=== PATIENT | female | born 1965 | race African-American/Black ===

== ENCOUNTER 2019-10-14 07:05 | Emergency (ER) | payer OTHER ==
[2019-10-14 07:32] VITALS: TEMP 98.9; BMI 27.8
[2019-10-14] MEDS ORDERED: SODIUM CHLORIDE 0.9% 500 ML INFUS.BAG IV ONE ×2 (07:47→10:36)
--- NOTE | 2019-10-14 07:49 | PDOC ---
History of Present Illness - General Chief Complaint: Blood Sugar Problem Stated Complaint: HIGH BP Time Seen by Provider: 10/14/19 07:33 History Source: Patient Exam Limitations: No Limitations - History of Present Illness Initial Comments: 10/14/19 07:49 53M PMH DM, HTN, HLD, Left breast ca s/p mastectomy presenting with high BGM (>500) today and 1 week of dizziness with decreased PO tolerance. States she takes all her medications every day. BGM ~ 300 regularly. Denies f/c, BURNETTE / vision changes, cp/sob/palp, n/v/d, dysuria, frequency, cough, runny nose, sick contacts. NKDA. Past History - Medical History Allergies/Adverse Reactions: Allergies Allergy/AdvReac Type Severity Reaction Status Date / Time No Known Allergies Allergy Verified 10/14/19 08:25 Home Medications: Ambulatory Orders Sitagliptin Phos/Metformin HCl [Janumet 50-1,000 mg Tablet] 1 tab PO DAILY 06/12/13 Atorvastatin Ca [Lipitor] 10 mg PO HS #0 tablet 06/13/13 Amlodipine Besylate 5 mg PO DAILY 10/14/19 Buspirone HCl [Buspar -] 7.5 mg PO BID 10/14/19 Chlorpromazine [Thorazine -] 100 mg PO DAILY 10/14/19 Insulin Glargine,Hum.rec.anlog [Basaglar Kwikpen U-100] 40 unit SQ DAILY 10/14/19 Insulin Lispro [Admelog Solostar] See Protocol SQ QID PRN 10/14/19 Metformin HCl [Glucophage] 1,000 mg PO BID 10/14/19 Metoprolol Succinate 25 mg PO DAILY 10/14/19 Nortriptyline HCl [Pamelor -] 50 mg PO HS 10/14/19 Semaglutide [Ozempic] 1 mg SQ WEEKLY 10/14/19 Sertraline HCl 50 mg PO TID 10/14/19 traZODone HCL [Trazodone HCl] 50 mg PO DAILY 10/14/19 Cancer: Yes (LT BREAST) COPD: No Diabetes: Yes Disorders: Yes (H/O KIDNEY STONES) HTN: Yes - Immunization History Immunization Up to Date: No - Psycho-Social/Smoking History Smoking History: Never smoked Have you smoked in the past 12 months: No Information on smoking cessation initiated: No - Substance Abuse Hx (Audit-C & DAST Scrn) How often the patient has a drink containing alcohol: Never Score: In Men: 4 or > Positive; In Women: 3 or > Positive: 0 Screen Result (Pos requires Nsg. Audit-10AR): Negative In the last yr the pt used illegal drug/Rx for NonMed reason: No Score: Yes response is considered Positive: 0 Screen Result (Positive result requires Nsg. DAST-10): Negative Review of Systems - Review of Systems Comments:: 10/15/19 09:11 CONSTITUTIONAL: Denies F / C HEENT: Endorses dizziness. Denies headache, changes in vision / hearing, sore throat, rhinorrhea RESP: Denies SOB, cough CARD: Denies chest pain, palpitations GI: Denies N / V / D, abdominal pain, bloody stool, inability to tolerate PO : Denies dysuria, hematuria, frequency NEURO: Denies numbness, tingling, weakness MSK: Denies back pain SKIN: Denies rashes *Physical Exam - Vital Signs Last Vital Signs Temp Pulse Resp BP Pulse Ox 98.9 F 110 H 16 116/76 99 10/14/19 07:25 10/14/19 07:25 10/14/19 07:25 10/14/19 07:25 10/14/19 07:25 - Physical Exam 10/15/19 09:12 GEN: NAD. AAOx3. HEENT: NC/AT, CN II-XII grossly intact, EOMI, PERRL. No facial asymmetry. Normal voice. Supple neck w/ FROM. CV: S1/S2, tachycardic, no m/r/g LUNG: CTAB, no wheezes, crackles, rales, rhonchi. GI: Soft, mild distension, nontender, +BS, no guarding, no rebound. No masses. Neg CVAT b/l. MSK: No LE edema. No obvious deformities of all extremities. SKIN: Warm, dry, no rashes appreciated. PSYCH: Normal mood and affect. NEURO: Moving all extremities well. 5/5 UE and LE strength. sensation symmetric. ED Treatment Course - LABORATORY CBC & Chemistry Diagram: 10/14/19 08:10 10/14/19 08:10 - RADIOLOGY Radiology Studies Ordered: Category Date Time Status CHEST X-RAY PORTABLE* [RAD] Stat Radiology 10/14/19 07:46 Ordered Medical Decision Making - Medical Decision Making 10/15/19 09:12 53M DM, HTN, HLD presenting with BGM >500 and dizziness. DDX - hyperglycemia; less likely HHS or DKA; will eval for infectious etiologies - CBC, CMP, beta hydroxybutyrate, VBG - UA - EKG, CXR - Fluids 10/14/19 08:40 EKG 10/14/19 HR 98 NSR, intervals and axis wnl, no JC/D, flat t-waves diffusely 10/14/19 08:45 VBG reviewed - pH wnl, unlikely DKA 10/14/19 10:12 labs reviewed no anion gap, no acidosis, isolated elevation in betahydroxybutyrate downtrending BGM f/u UA 10/14/19 12:14 pt feeling better s/p 2 L NS downtrending BGMs despite pt eating a meal will dc home w/ endo and pcp f/u Discharge - Discharge Information Problems reviewed: Yes Clinical Impression/Diagnosis: Hyperglycemia Condition: Stable Disposition: HOME - Follow up/Referral Referrals: Orlando Cheng MD [Primary Care Provider] - Bolivar Glez MD [Staff Physician] - - Patient Discharge Instructions Patient Printed Discharge Instructions: DI for Hyperglycemia -- Adult Additional Instructions: Drink plenty of fluids. Continue your home medications as prescribed. Follow up with your Primary Care Doctor regarding this ED visit in the next 5-7 days. Discuss options that may help you better control your blood sugar. Follow up with Endocrinology in the next 5-7 days. Discuss options that may help you better control your blood sugar. We are referring you to Dr. Glez, you can call and schedule an appointment with the number attached. You may use any motor driver in your network. Return to the nearest Emergency Department if you experience new or worsening symptoms - Post Discharge Activity
[2019-10-14 08:38] LABS: VENOUS BASE EXCESS -3.3 mmol/L (-2-2); VENOUS PCO2 40.1 mmHg (38-52); VENOUS PH 7.356 (7.310-7.410)
--- NOTE | 2019-10-14 08:41 | PDOC ---
Attending Attestation - Resident Resident Name: Stuart Noble - ED Attending Attestation I have performed the following: I have examined & evaluated the patient, The case was reviewed & discussed with the resident, I agree w/resident's findings & plan, Exceptions are as noted - HPI HPI: 10/14/19 08:36 53 yo F h/o DM p/w elevated FS to 500's measured this morning. States usually in the 300s. Reports taking her medication as prescribed. Denies any changes in diet. Reports some intermittent dizziness. Denies n/v. Denies abd pain, chest pain, or SOB. No infectious complaints. - Physicial Exam PE: 10/14/19 08:37 General: well appearing, NAD Chest: CTAB, good air entry, no wheezes rales or rhonchi CVS: + s1 s2 Abdomen: soft, nt no rebound, no guarding Neuro: awake, alert, responds appropriately to questions, no focal deficits - Medical Decision Making 10/14/19 08:41 53 yo F with elevated FS at home, possible DKA vs. HHS vs. hyperglycemia, no infectious complaints to suggest infectious etiology, patient with elevated FS at baseline to 300 suggesting she might benefit from medication readjustment as outpatient. Plan: -labs -IVF -reassess This clinical encounter is taking place during a federal and state health care emergency attributable to the novel Jacob Virus pandemic. The [place] of the Department of Health and Human Services has declared, pursuant to the Public Health Service Act 319F-3 (42 U.S.C. 247d-6d), that a covered persons activities related to medical countermeasures against COVID-19 will be immune from liability under Federal and State law. 10/14/19 11:50 Labs reviewed. No DKA. FS improved with IVF. Will d/c with return precautions, recommend PMD f/u Discharge - Discharge Information Problems reviewed: Yes Clinical Impression/Diagnosis: Hyperglycemia Condition: Stable - Follow up/Referral Referrals: Bolivar Glez MD [Staff Physician] - Orlando Cheng MD [Primary Care Provider] - - Patient Discharge Instructions Patient Printed Discharge Instructions: DI for Hyperglycemia -- Adult Additional Instructions: Drink plenty of fluids. Continue your home medications as prescribed. Follow up with your Primary Care Doctor regarding this ED visit in the next 5-7 days. Discuss options that may help you better control your blood sugar. Follow up with Endocrinology in the next 5-7 days. Discuss options that may help you better control your blood sugar. We are referring you to Dr. Glez, you can call and schedule an appointment with the number attached. You may use any thread winder in your network. Return to the nearest Emergency Department if you experience new or worsening symptoms - Post Discharge Activity
[2019-10-14 08:44] LABS: BASO % 0.3 % (0-2.0); EOS % 1.1 % (0-4.5); HEMOGLOBIN 10.8 GM/dL (10.7-15.3); MCH 26.1 pg (25.7-33.7); MCHC 32.8 g/dl (32.0-36.0); MEAN CELL VOLUME 79.8 fl (80-96); MEAN PLT VOLUME 8.3 fl (7.5-11.1); MONO % 6.8 % (3.8-10.2); NEUT % 71.8 % (42.8-82.8); PLATELET COUNT 349 K/MM3 (134-434); RBC 4.14 M/mm3 (3.60-5.2); RDW 14.3 % (11.6-15.6); WHITE BLOOD COUNT 9.3 K/mm3 (4.0-10.0)
[2019-10-14 09:14] LABS: ALBUMIN 3.8 g/dl (3.4-5.0); BILIRUBIN,TOTAL 0.2 mg/dL (0.2-1); BLOOD UREA NITROGEN 14.4 mg/dL (7-18); CALCIUM 9.1 mg/dL (8.5-10.1); POTASSIUM 4.5 mmol/L (3.5-5.1); TOT PROT 7.5 g/dl (6.4-8.2)
[2019-10-14 10:25] VITALS: BP 128/77; PULSE 89
[2019-10-14 10:43] LABS: URINE APPEARANCE CLEAR; URINE BILIRUBIN NEGATIVE (NEGATIVE); URINE COLOR YELLOW; URINE GLUCOSE (UA) 3+ (NEGATIVE); URINE KETONE 1+ (NEGATIVE); URINE LEUK ESTERASE NEGATIVE (NEGATIVE); URINE NITRITE NEGATIVE (NEGATIVE); URINE PROTEIN NEGATIVE (NEGATIVE); URINE UROBILINOGEN 0.2 mg/dL (0.2-1.0)
--- NOTE | 2019-10-15 17:30 | EKG ---
Test Reason : Blood Pressure : / mmHG Vent. Rate : 098 BPM Atrial Rate : 098 BPM P-R Int : 154 ms QRS Dur : 072 ms QT Int : 366 ms P-R-T Axes : 063 034 062 degrees QTc Int : 467 ms NORMAL SINUS RHYTHM POSSIBLE LEFT ATRIAL ENLARGEMENT NONSPECIFIC T WAVE ABNORMALITY ABNORMAL ECG WHEN COMPARED WITH ECG OF 01-APR-2010 10:03, NO SIGNIFICANT CHANGE WAS FOUND Confirmed by MD Suleiman, Oni ([id number]) on 10/15/2019 5:30:23 PM Referred By: Confirmed By:Oni Bearden MD
== END 2019-10-14 12:25 | disposition home or self-care (01) ==
LOC: JER 07:05 → SUPCPDRO 07:05 → JER 12:25
DX: R73.9 Hyperglycemia, unspecified (principal)
CPT/HCPCS: 36415; 71045-TC-FY; 80053; 81003; 82010; 82803; 82962; 85025; 87086; 93005; 93010; 99285-25

== ENCOUNTER 2019-12-13 14:12 | Inpatient (IN) | payer OTHER ==
[2019-12-13 14:24] VITALS: TEMP 98; BMI 26.6
--- NOTE | 2019-12-13 14:50 | PDOC ---
History of Present Illness - General Chief Complaint: Blood Sugar Problem Stated Complaint: HYPERGLYCEMIA Time Seen by Provider: 12/13/19 14:43 - History of Present Illness Initial Comments: 12/13/19 15:31 53yo F w/ PMHx DM poorly controlled by her medication, HTN, HLD, CVA, Breast CA, presents w/ elevated blood sugar today. This AM before insulin BG = 500s. This afternoon it was again in the 500s, so she came into the ED. She feels vertiginous and weak. Reports adhering to her medications. Denies n/v/d, recent illness, fevers, rashes. This has happened before. Past History - Travel History Traveled outside of the country in the last 30 days: No - Medical History Allergies/Adverse Reactions: Allergies Allergy/AdvReac Type Severity Reaction Status Date / Time No Known Allergies Allergy Verified 10/14/19 08:25 Home Medications: Ambulatory Orders Amlodipine Besylate 5 mg PO DAILY 10/14/19 Buspirone HCl [Buspar -] 7.5 mg PO BID 10/14/19 Chlorpromazine [Thorazine -] 100 mg PO DAILY 10/14/19 Insulin Glargine,Hum.rec.anlog [Basaglar Kwikpen U-100] 40 unit SQ DAILY 10/13 Metoprolol Succinate 25 mg PO DAILY 10/14/19 Nortriptyline HCl [Pamelor -] 50 mg PO HS 10/14/19 Sertraline HCl 50 mg PO HS PRN 10/14/19 traZODone HCL [Trazodone HCl] 50 mg PO DAILY 10/14/19 Atorvastatin Ca [Lipitor] 20 mg PO HS 12/13/19 Metformin HCl [Glucophage] 500 mg PO BID 12/13/19 Omeprazole 20 mg PO DAILY 12/13/19 Cancer: Yes (LT BREAST) COPD: No Diabetes: Yes Disorders: Yes (H/O KIDNEY STONES) HTN: Yes - Reproductive History Is Patient Now?: No - Immunization History Immunization Up to Date: No - Psycho-Social/Smoking History Smoking History: Never smoked Have you smoked in the past 12 months: No Information on smoking cessation initiated: No - Substance Abuse Hx (Audit-C & DAST Scrn) How often the patient has a drink containing alcohol: Never Score: In Men: 4 or > Positive; In Women: 3 or > Positive: 0 Screen Result (Pos requires Nsg. Audit-10AR): Negative In the last yr the pt used illegal drug/Rx for NonMed reason: No Score: Yes response is considered Positive: 0 Screen Result (Positive result requires Nsg. DAST-10): Negative Review of Systems - Review of Systems Able to Perform ROS?: Yes Is the patient limited Martiniquais proficient: No Constitutional: Yes: Weakness. No: Chills, Diaphoresis HEENTM: No: Blurred Vision Respiratory: No: Cough, SOB with Exertion, SOB at Rest ABD/GI: Yes: Abdominal Distended (reports slow and progressive distention of ABD for months). No: Diarrhea, Nausea, Vomiting : No: Burning, Dysuria, Hematuria, Urgency Musculoskeletal: No: Back Pain, Muscle Pain Integumentary: Yes: Dryness. No: Other Neurological: Yes: Weakness, Dizziness. No: Headache, Numbness Endocrine: Yes: Unexplained Weight Gain, Change in Weight (went to PCP 2 months ago for check up ) All Other Systems: Reviewed and Negative *Physical Exam - Vital Signs Last Vital Signs Temp Pulse Resp BP Pulse Ox 98.0 F 103 H 16 126/78 97 12/13/19 14:20 12/13/19 14:20 12/13/19 14:20 12/13/19 14:20 12/13/19 14:20 - Physical Exam General Appearance: Yes: Nourished, Appropriately Dressed, Apparent Distress, Mild Distress HEENT: positive: EOMI. negative: Normal Voice (voice is weak and slightly sl urred. no trouble protecting airway. normal SpO2, no increased labor of breathing), Excessive drooling Neck: positive: Trachea midline. negative: Stridor Respiratory/Chest: positive: Lungs Clear, Normal Breath Sounds. negative: Chest Tender, Respiratory Distress, Accessory Muscle Use, Labored Respiration, Rapid RR, Decreased Breath Sounds Cardiovascular: positive: Regular Rhythm, S1, S2, Tachycardia Gastrointestinal/Abdominal: positive: Normal Bowel Sounds, Soft, Distended Musculoskeletal: positive: Normal Inspection. negative: CVA Tenderness Extremity: positive: Normal Capillary Refill, Normal Inspection Integumentary: positive: Dry Neurologic: positive: Fully Oriented, Alert, Normal Response (slurring words and lethargic but A/O and in NAD ) Heart Score/ECG Review - ECG Intrepretation Rhythm: Regular Rhythm - [place]: Normal - QRS Comment:: 12/13/19 16:12 low voltage in lead 3 and V3 - ST and T Early Repolarization: No - ECG Impressions Normal ECG: No ED Treatment Course - LABORATORY CBC & Chemistry Diagram: 12/13/19 15:21 12/13/19 15:21 Medical Decision Making - Medical Decision Making 12/13/19 15:42 53yo F w/ extensive history of DM-related complications presents hyperglycemic, lethargic, and weak. lethargic and reporting elevated BH -> obtained BGM -> 457. -> will draw labs, start immediate fluid resus w/ LR while waiting for labs. h/o cardiac issues, CVA, breast CA -> hypercoaguable -> will consider head CT if fluid resus and IV insulin does not work 12/13/19 16:08 12/13/19 16:40 CMP: K normal, Anion gap 13, ++ketones. will give insulin bolus and K PO to cover intracellular shift. 12/13/19 18:03 after pt was accepted she decided to AMA and leave. PT AA/O x4, pt has capacity and understands risks of AMA. will check one more BG and DC 12/13/19 18:19 Discharge - Discharge Information Problems reviewed: Yes Clinical Impression/Diagnosis: Hyperglycemia due to diabetes mellitus, Ketosis due to diabetes Condition: Stable Disposition: AGAINST MEDICAL ADVICE - Admission Yes - Follow up/Referral - Patient Discharge Instructions - Post Discharge Activity
[2019-12-13] MEDS ORDERED: LACTATED RINGERS SOLUTION 1,000 ML/1,000 ML INFUS.BAG IV STA (15:09)
[2019-12-13 15:48] LABS: VENOUS O2 SATURATION 76.6 % (70-80); VENOUS PH 7.341 (7.310-7.410)
[2019-12-13 15:50] LABS: BASO % 0.3 % (0-2.0); EOS % 1.3 % (0-4.5); HEMATOCRIT 35.8 % (32.4-45.2); HEMOGLOBIN 11.7 GM/dL (10.7-15.3); LYMPH % 26.1 % (8-40); MCH 26.2 pg (25.7-33.7); MCHC 32.8 g/dl (32.0-36.0); MEAN PLT VOLUME 9.1 fl (7.5-11.1); MONO % 5.6 % (3.8-10.2); NEUT % 66.7 % (42.8-82.8); PLATELET COUNT 349 K/MM3 (134-434); RBC 4.48 M/mm3 (3.60-5.2); RDW 14.6 % (11.6-15.6); WHITE BLOOD COUNT 9.4 K/mm3 (4.0-10.0)
--- NOTE | 2019-12-13 15:55 | PDOC ---
Documentation entered by William Fulton SCRIBE, acting as scribe for Marco A Grider MD. Marco A Grider MD: This documentation has been prepared by the denise, William Fulton SCRIBE, under my direction and personally reviewed by me in its entirety. I confirm that the documentation accurately reflects all work, treatment, procedures, and medical decision making performed by me. Attending Attestation - Resident Resident Name: Jamil Shepard - ED Attending Attestation I have performed the following: I have examined & evaluated the patient, The case was reviewed & discussed with the resident, I agree w/resident's findings & plan, Exceptions are as noted - HPI HPI: 12/13/19 15:46 The patient is a 53 year old female with a significant past medical history of CVA (reported, not reflected in prior charts), Left breast ca s/p mastectomy, kidney stones, DM, HTN, and HLD who presents to the emergency department for evaluation of blood glucose in the 500s that began this morning. Pt then took her insulin. The patient reports checking her blood glucose again this afternoon and it was still in the 500s. She endorses weakness and dizziness as well. Denies F/C. The patient denies chest/abdominal/back pain, cough, and shortness of breath. Denies fever, chills, nausea, vomiting, and/or any GI symptoms. Denies any symptoms. Denies any other symptoms. Allergies: NKA Social Hx: None reported PCP: Dr. Orlando Cheng - Physicial Exam PE: 12/13/19 14:58 see resident exam - Medical Decision Making 12/13/19 16:08 53 F with elevated sugar, weakness, dizziness. Will r/o DKA. - Labs, ketones - VBG - IV fluids 12/13/19 18:00 Labs notable for + ketones, glucose 400 Pt given 7u insulin IV I explained to pt need for inpatient admission to titrate her insulin and ensure correction of her electrolyte derangements. Pt states that she is not comfortable staying in the hospital and wants to leave. She states she will call Dr. Cheng tomorrow. The patient is clinically sober, free from distracting injury, appears to have intact insight and judgment and reason and in my opinion has the capacity to make decisions. The patient presented with elevated sugar and + ketones in her blood. I explained that this could lead to DKA, a life threatening illness. They have verbalized an understanding of my concerns. I have discussed the need for admission to the hospital for IV fluids and insulin. I have told the patient that if they leave, they could get much worse, could become critically ill, and could possibly become disabled or . She is unwilling to stay overnight for monitoring. She is refusing any further care and is leaving against medical advice. I am unable to convince the patient to stay, I have asked them to return as soon as possible to complete their evaluation. I have answered all their questions. Discharge - Discharge Information Problems reviewed: Yes Clinical Impression/Diagnosis: Hyperglycemia due to diabetes mellitus, Ketosis due to diabetes Condition: Stable Disposition: AGAINST MEDICAL ADVICE - Follow up/Referral Referrals: Orlando Cheng MD [Primary Care Provider] - - Patient Discharge Instructions Additional Instructions: You came to the ED with elevated blood sugar and lethargy. We treated you with fluids... We gave you a list of endocrinologists who should take your insurance. Please call one of these within 48hours of leaving the hospital and make an appointment. It is very important to establish care immediately to get good control of your blood sugar. - Post Discharge Activity
[2019-12-13 16:24] LABS: ALBUMIN 4.3 g/dl (3.4-5.0); ALK PHOS 115 U/L (45-117); ANION GAP 13 MMOL/L (8-16); BILIRUBIN,TOTAL 0.3 mg/dL (0.2-1); BLOOD UREA NITROGEN 13.2 mg/dL (7-18); CALCIUM 9.8 mg/dL (8.5-10.1); CHLORIDE 94 mmol/L (98-107); CO2 25 mmol/L (21-32); CREATININE 1.1 mg/dL (0.55-1.3); SGOT/AST 15 U/L (15-37); SODIUM 132 mmol/L (136-145); TOT PROT 8.4 g/dl (6.4-8.2)
[2019-12-13 16:26] LABS: SGPT/ALT 28 U/L (13-61)
[2019-12-13 16:29] LABS: GLUCOSE,RANDOM 472 mg/dL (74-106)
[2019-12-13] MEDS ORDERED: INSULIN REGULAR HUMAN 100 UNITS/ML *VIAL IVPUSH ONE (16:36)
[2019-12-13] MEDS ORDERED: POTASSIUM CHLORIDE TABS 20 MEQ TABLET.ER (FP) PO ONE ×2 (16:37→18:04)
--- OUTSIDE RECORDS SUMMARY | 2019-12-13 19:16 | XMS ---
:1965 [facility] Support Name Relationship Address Phone UE Unavailable Unavailable Unavailable UE Unavailable Unavailable Unavailable MARTI SON [address] [place] [address] MARTI Child [address] [facility] [place] [address] Re-disclosure Warning The records that you are about to access may contain information from federally- assisted alcohol or drug abuse programs. If such information is present, then the following federally mandated warning applies: This information has been disclosed to you from records protected by federal confidentiality rules (42 CFR part 2). The federal rules prohibit you from making any further disclosure of this information unless further disclosure is expressly permitted by the written consent of the person to whom it pertains or as otherwise permitted by 42 CFR part 2. A general authorization for the release of medical or other information is NOT sufficient for this purpose. The Federal rules restrict any use of the information to criminally investigate or prosecute any alcohol or drug abuse patient.The records that you are about to access may contain highly sensitive health information, the redisclosure of which is protected by Article 27-F of the [facility] Public Health law. If you continue you may haveaccess to information: Regarding HIV / AIDS; Provided by facilities licensed or operated by the [facility] Office of Mental Health; or Provided by the [facility] Office for People With Developmental Disabilities. If such information is present, then the following [facility] mandated warning applies: This information has been disclosed to you from confidential records which are protected by state law. State law prohibits you from making any further disclosure of this information without the specific written consent of the person to whom it pertains, or as otherwise permitted by law. Any unauthorized further disclosure in violation of state law may result in a fine or skilled nursing sentence or both. A general authorization for the release of medical or other information is NOT sufficient authorization for further disclosure. Insurance Providers Payer name Policy type Policy ID Covered Covered green party's Policy P oni / Coverage green party ID relationship to [employer] type borrego [employer] [employer] [id number] SP [id number] NON CAP AFFINITY [id number] 1 [id number] 200 ESSENTIAL ([place]CH[place] NAYELY Brantley [id number] S [id number] Planning MKD & EP 3 & 4 Only Bal[employer] Vision [id number] S [id number] MKD Dental [id number] S [id number] 800 Dentaquest MKD Medicaid [id number] S [id number] Regular Clinic Visit [facility] [id number] S [id number] [place] Results ID Date Data Source [id number] 12/07/2019 12:00:00 AM EDT [facility] Name Value Range Interpretation Description Data Sup porting Code Source(s) Document(s ) Nasopharyngeal [facility] Swab SARS-CoV-2 / COVID-19 This lab was ordered by [facility] and reported by [facility]. ID Date Data Source [id number] 09/01/2019 12:00:00 AM EDT [facility] Name Value Range Interpretation Code Description Data Tyesha rce(s) Supporting Document(s ) 2019-nCoV [facility] RNA XXX KAYKAY+probe- Imp This lab was ordered by [facility] and reported by [facility]. Procedure Social History Code Duration Value Status Description Data Source(s ) Smoking Unknown if ever completed Unknown if ever Deandre Syed smoked [facility]
[2019-12-13 19:26] VITALS: BP 126/72; PULSE 97
--- NOTE | 2019-12-14 14:04 | EKG ---
Test Reason : Blood Pressure : / mmHG Vent. Rate : 094 BPM Atrial Rate : 094 BPM P-R Int : 174 ms QRS Dur : 070 ms QT Int : 366 ms P-R-T Axes : 033 022 057 degrees QTc Int : 457 ms NORMAL SINUS RHYTHM POSSIBLE LEFT ATRIAL ENLARGEMENT CANNOT RULE OUT ANTERIOR INFARCT , AGE UNDETERMINED ABNORMAL ECG WHEN COMPARED WITH ECG OF 14-OCT-2019 08:34, NO SIGNIFICANT CHANGE WAS FOUND Confirmed by GALEN BROWN MD ([id number]) on 12/14/2019 2:04:47 PM Referred By: Confirmed By:GALEN BROWN MD
== END 2019-12-13 18:11 | disposition left against medical advice (07) | DRG 420 ==
LOC: JER 14:12 → JERBED 17:16
PROVIDERS: ADMIT Internal Medicine; ATTEND Internal Medicine
DX: E11.65 Type 2 diabetes mellitus with hyperglycemia (principal); I10 Essential (primary) hypertension; E78.5 Hyperlipidemia, unspecified; Z85.3 Personal history of malignant neoplasm of breast; Z86.73 Personal history of transient ischemic attack (TIA), and cerebral infarction without residual deficits
CPT/HCPCS: 36415; 71045-TC-FY; 80053; 82010; 82550; 82803; 82962; 84484; 85025; 93005; 93010; 99285-25

== ENCOUNTER 2020-12-28 22:26 | Emergency (ER) | payer OTHER ==
[2020-12-28 22:41] VITALS: TEMP 98; BMI 25.2
[2020-12-28] MEDS ORDERED: ACETAMINOPHEN 1000 MG/100 ML VIAL (NON FORMULARY) IVPB ONE (23:43)
[2020-12-28] MEDS ORDERED: LACTATED RINGERS SOLUTION 1000 ML INFUS.BAG IV ONE (23:43)
[2020-12-29] MEDS ORDERED: ACETAMINOPHEN INJECTION 100 ML IVPB ONE (01:02)
[2020-12-29 01:40] LABS: BASO % 0.5 % (0-2.0); EOS % 0.6 % (0-4.5); HEMATOCRIT 38.1 % (32.4-45.2); HEMOGLOBIN 12.3 GM/dL (10.7-15.3); LYMPH % 15.3 % (8-40); MCH 27.9 pg (25.7-33.7); MCHC 32.4 g/dl (32.0-36.0); MEAN CELL VOLUME 86.1 fl (80-96); MONO % 5.1 % (3.8-10.2); NEUT % 78.5 % (42.8-82.8); PLATELET COUNT 324 10^3/uL (134-434); RBC 4.43 M/mm3 (3.60-5.2); RDW 13.3 % (11.6-15.6); WHITE BLOOD COUNT 16.1 K/mm3 (4.0-10.0)
[2020-12-29 01:45] LABS: HCG,QUALITATIVE URINE Negative
[2020-12-29 01:55] LABS: URINE APPEARANCE TURBID; URINE BILIRUBIN SMALL (NEGATIVE); URINE COLOR RED; URINE GLUCOSE (UA) >=1000 (NEGATIVE); URINE KETONE 15 mg/dl (NEGATIVE)
[2020-12-29 01:56] LABS: URINE LEUK ESTERASE 2+ (NEGATIVE); URINE NITRITE POSITIVE (NEGATIVE); URINE PROTEIN 100 (NEGATIVE); URINE UROBILINOGEN 0.2 mg/dL (0.2-1.0)
[2020-12-29 01:57] LABS: CALCIUM 8.8 mg/dL (8.5-10.1); EPI CELLS 1 /uL (0-25.1); HYALINE CASTS 828 /uL (0-3.1); URINE BACTERIA 415 /uL (0-1359); URINE RBC 8993 /uL (0-23.9); URINE WBC 604 /uL (0-25.8)
[2020-12-29 01:58] LABS: ALBUMIN 3.9 g/dl (3.4-5.0)
[2020-12-29 02:01] LABS: CREATININE 1.2 mg/dL (0.55-1.3)
[2020-12-29 02:02] LABS: BILIRUBIN,TOTAL 0.3 mg/dL (0.2-1)
[2020-12-29] MEDS ORDERED: CEFTRIAXONE 1,000 MG in DEXTROSE 5%-WATER - 50 ML IVPB ONE (02:07)
[2020-12-29 02:25] LABS: SYPHILIS W/ RPR CONF NON-REACTIVE (NONREACTIVE)
[2020-12-29] MEDS ORDERED: CEFTRIAXONE 1 GM/50 ML BAG ONE (02:29)
[2020-12-29 03:02] LABS: HIV INTERPRETATION NEGATIVE (NEGATIVE)
[2020-12-29 03:53] VITALS: BP 142/81; PULSE 89
== END 2020-12-29 03:55 | disposition home or self-care (01) ==
LOC: JER 22:26
PROC: 3E0333Z Introduction of Anti-inflammatory into Peripheral Vein, Percutaneous Approach (ICD-10-PCS; principal; 2020-12-28)
PROC: 3E03329 Introduction of Other Anti-infective into Peripheral Vein, Percutaneous Approach (ICD-10-PCS; 2020-12-28)
DX: N30.01 Acute cystitis with hematuria (principal)
CPT/HCPCS: 36415; 74177-TC; 80053; 81003; 84703; 85025; 86780; 87086; 87186; 87389; 87491; 87591; 99285-25; J0131; Q9967

== ENCOUNTER 2021-05-02 13:24 | Emergency (ER) | payer OTHER ==
[2021-05-02 13:32] VITALS: TEMP 98.9; BMI 23.3
[2021-05-02] MEDS ORDERED: SODIUM CHLORIDE 0.9% 500 ML INFUS.BAG IV ONE (14:04)
[2021-05-02 14:52] LABS: BASO % 0.4 % (0-2.0); EOS % 0.8 % (0-4.5); HEMATOCRIT 38.2 % (32.4-45.2); HEMOGLOBIN 13.1 GM/dL (10.7-15.3); LYMPH % 24.4 % (8-40); MCH 28.5 pg (25.7-33.7); MCHC 34.4 g/dl (32.0-36.0); MEAN CELL VOLUME 82.9 fl (80-96); MEAN PLT VOLUME 8.5 fl (7.5-11.1); MONO % 5.8 % (3.8-10.2); NEUT % 68.6 % (42.8-82.8); PLATELET COUNT 305 10^3/uL (134-434); RBC 4.61 M/mm3 (3.60-5.2); RDW 14.6 % (11.6-15.6); WHITE BLOOD COUNT 9.2 K/mm3 (4.0-10.0)
[2021-05-02 14:53] LABS: VENOUS BASE EXCESS -5.5 mmol/L (-2-2); VENOUS O2 SATURATION 72.5 % (70-80); VENOUS PCO2 39.2 mmHg (38-52); VENOUS PH 7.326 (7.310-7.410)
[2021-05-02 14:59] LABS: INR 0.82 (0.83-1.09); PROTHROMBIN TIME (PATIENT) 9.4 SEC (9.7-13.0)
[2021-05-02 15:02] LABS: ACTIVATED PTT 25.5 SECONDS (25.2-36.5)
[2021-05-02 15:09] LABS: CHLORIDE 102 mmol/L (98-107); SODIUM 136 mmol/L (136-145)
[2021-05-02 15:11] LABS: CALCIUM 9.4 mg/dL (8.5-10.1)
[2021-05-02 15:12] LABS: ALBUMIN 4.1 g/dl (3.4-5.0); ANION GAP 11 MMOL/L (8-16); CO2 22 mmol/L (21-32); GLUCOSE,RANDOM 312 mg/dL (74-106); MAGNESIUM 1.7 mg/dL (1.8-2.4)
[2021-05-02 15:15] LABS: CREATININE 0.8 mg/dL (0.55-1.3)
[2021-05-02 15:17] LABS: BILIRUBIN,TOTAL 0.3 mg/dL (0.2-1)
[2021-05-02 15:18] LABS: ALK PHOS 64 U/L (45-117)
[2021-05-02 15:30] LABS: BLOOD UREA NITROGEN 21.1 mg/dL (7-18); SGOT/AST 24 U/L (15-37); SGPT/ALT 37 U/L (13-61); TOT PROT 7.5 g/dl (6.4-8.2)
[2021-05-02 16:56] VITALS: BP 121/78; PULSE 87
== END 2021-05-02 16:56 ==
LOC: JER 13:24
DX: R00.0 Tachycardia, unspecified (principal)
CPT/HCPCS: 36415; 71045-TC-FY; 80053; 82010; 82550; 82803; 82962; 83036; 83735; 84443; 84484; 85025; 85610; 85730; 93005; 93010; 99285-25; C9803; U0003; U0005

== ENCOUNTER 2021-07-02 10:14 | Emergency (ER) | payer OTHER ==
[2021-07-02 10:21] VITALS: BP 166/91; PULSE 95; TEMP 98.3; BMI 23.6
[2021-07-02] MEDS ORDERED: KETOROLAC TROMETHAMINE 30 MG/1 ML VIAL IM ONE (11:11)
[2021-07-02] MEDS ORDERED: LIDOCAINE 1%/EPI 1:100000 (20 ML MULTI DOSE VIAL) ONE (11:13)
[2021-07-02] MEDS ORDERED: KETOROLAC TROMETHAMINE 30 MG/1 ML VIAL ONE (11:13)
[2021-07-02] MEDS ORDERED: LIDOCAINE 1%/EPI 1:100000 (20 ML MULTI DOSE VIAL) IJ ONE (12:11)
== END 2021-07-02 12:13 | disposition home or self-care (01) ==
LOC: JERFT 10:14
PROC: 0U9MXZZ Drainage of Vulva, External Approach (ICD-10-PCS; principal; 2021-07-02)
PROC: 3E023GC Introduction of Other Therapeutic Substance into Muscle, Percutaneous Approach (ICD-10-PCS; 2021-07-02)
DX: N75.1 Abscess of Bartholin's gland (principal)
CPT/HCPCS: 99284-25

== ENCOUNTER 2021-08-07 15:31 | Emergency (ER) | payer OTHER ==
[2021-08-07 15:37] VITALS: BP 143/82; PULSE 68; TEMP 98.3; BMI 23.3
[2021-08-07 18:06] LABS: BASO % 0.3 % (0-2.0); EOS % 0.8 % (0-4.5); HEMATOCRIT 38.1 % (32.4-45.2); HEMOGLOBIN 12.1 GM/dL (10.7-15.3); LYMPH % 33.2 % (8-40); MCH 27.3 pg (25.7-33.7); MCHC 31.7 g/dl (32.0-36.0); MEAN CELL VOLUME 86.1 fl (80-96); MEAN PLT VOLUME 9.3 fl (7.5-11.1); MONO % 5.3 % (3.8-10.2); NEUT % 60.4 % (42.8-82.8); PLATELET COUNT 360 10^3/uL (134-434); RBC 4.43 M/mm3 (3.60-5.2); RDW 13.6 % (11.6-15.6); WHITE BLOOD COUNT 8.2 K/mm3 (4.0-10.0)
[2021-08-07 18:27] LABS: CALCIUM 10.4 mg/dL (8.5-10.1)
[2021-08-07 18:28] LABS: ALBUMIN 4.7 g/dl (3.4-5.0); BLOOD UREA NITROGEN 21.3 mg/dL (7-18)
[2021-08-07 18:31] LABS: CREATININE 1.1 mg/dL (0.55-1.3)
[2021-08-07 18:32] LABS: TOT PROT 7.9 g/dl (6.4-8.2)
[2021-08-07 18:33] LABS: BILIRUBIN,TOTAL 0.3 mg/dL (0.2-1)
== END 2021-08-07 19:50 | disposition home or self-care (01) ==
LOC: JER 15:31
DX: E11.65 Type 2 diabetes mellitus with hyperglycemia (principal)
CPT/HCPCS: 36415; 70450-TC; 71046-TC-FY; 80053; 82010; 83690; 83880; 84443; 84484; 85025; 93005; 93010; 99285-25

== ENCOUNTER 2021-11-10 11:44 | Emergency (ER) | payer OTHER ==
[2021-11-10 12:07] VITALS: BP 121/73; PULSE 102; RESP 18; TEMP 97.7; BMI 25.0
== END 2021-11-10 12:39 | disposition home or self-care (01) ==
LOC: JER 11:44 → JERFT 11:44
DX: T16.1XXA Foreign body in right ear, initial encounter (principal)
CPT/HCPCS: 99283-25

== ENCOUNTER 2022-09-09 06:58 | Emergency (ER) | payer OTHER ==
[2022-09-09 07:18] VITALS: BP 132/87; PULSE 88; RESP 18; TEMP 98.3; BMI 27.4
[2022-09-09] MEDS ORDERED: SODIUM CHLORIDE 1,000 ML IV STA (07:53)
[2022-09-09] MEDS ORDERED: ACETAMINOPHEN 1000 MG/100 ML BAG IVPB ONE (07:54)
[2022-09-09] MEDS ORDERED: ACETAMINOPHEN INJECTION 100 ML IVPB ONE (08:00)
[2022-09-09 09:37] LABS: BASO % 0.6 % (0-2.0); EOS % 2.4 % (0-4.5); HEMATOCRIT 36.4 % (32.4-45.2); HEMOGLOBIN 11.5 GM/dL (10.7-15.3); LYMPH % 30.4 % (8-40); MCH 24.6 pg (25.7-33.7); MCHC 31.7 g/dl (32.0-36.0); MEAN CELL VOLUME 77.7 fl (80-96); MEAN PLT VOLUME 8.7 fl (7.5-11.1); MONO % 6.6 % (3.8-10.2); PLATELET COUNT 361 10^3/uL (134-434); RBC 4.68 M/mm3 (3.60-5.2); RDW 17.5 % (11.6-15.6); WHITE BLOOD COUNT 8.4 K/mm3 (4.0-10.0)
[2022-09-09 09:38] LABS: ACTIVATED PTT 20.1 SECONDS (25.2-36.5)
[2022-09-09 09:43] LABS: INR 0.89 (0.83-1.09); PROTHROMBIN TIME (PATIENT) 10.3 SEC (9.7-13.0)
[2022-09-09 10:28] LABS: POTASSIUM 4.3 mmol/L (3.5-5.1)
[2022-09-09 10:30] LABS: ALBUMIN 4.2 g/dl (3.4-5.0)
[2022-09-09 10:31] LABS: BLOOD UREA NITROGEN 9.5 mg/dL (7-18); MAGNESIUM 1.9 mg/dL (1.8-2.4)
[2022-09-09 10:33] LABS: CREATININE 0.9 mg/dL (0.55-1.3)
[2022-09-09 10:35] LABS: BILIRUBIN,TOTAL 0.4 mg/dL (0.2-1); TOT PROT 7.7 g/dl (6.4-8.2)
== END 2022-09-09 11:37 | disposition home or self-care (01) ==
LOC: JER 06:58
PROC: 3E033NZ Introduction of Analgesics, Hypnotics, Sedatives into Peripheral Vein, Percutaneous Approach (ICD-10-PCS; principal; 2022-09-09)
PROC: 3E0337Z Introduction of Electrolytic and Water Balance Substance into Peripheral Vein, Percutaneous Approach (ICD-10-PCS; 2022-09-09)
DX: M79.602 Pain in left arm (principal); N64.4 Mastodynia
CPT/HCPCS: 36415; 76641-TC-LT; 80053; 83735; 84484; 85025; 85610; 85730; 93005; 93010; 99285-25

== ENCOUNTER 2022-12-21 09:56 | Day surgery (SDC) | payer OTHER ==
[2022-12-16 17:43] VITALS: BMI 29.0
[2022-12-21] MEDS ORDERED: BUPIVACAINE HCL/PF 0.5% (5MG/ML) 10 ML VIAL ONE (12:41)
[2022-12-21] MEDS ORDERED: BUPIVACAINE LIPOSOME/PF (EXPAREL) 266 MG/20 ML VIAL ONE (12:41)
[2022-12-21] MEDS ORDERED: MIDAZOLAM HCL 2 MG/2 ML SINGLE DOSE VIAL ONE ×2 (12:41→13:48)
[2022-12-21] MEDS ORDERED: PROMETHAZINE HCL 25 MG/1 ML VIAL IVPB PRN (13:42)
[2022-12-21] MEDS ORDERED: ONDANSETRON 4 MG/2 ML VIAL IVPUSH PRN (13:42)
[2022-12-21] MEDS ORDERED: oxyCODONE HCL 5 MG TABLET PO PRN (13:42)
[2022-12-21] MEDS ORDERED: GENTAMICIN SO4 80 MG/2 ML VIAL ONE (13:43)
[2022-12-21] MEDS ORDERED: ceFAZolin SODIUM 1 GM VIAL ONE ×2 (13:43→13:51)
[2022-12-21] MEDS ORDERED: BUPIVACAINE HCL/PF 2.5 MG/ML - 30 ML VIAL IJ ONE (13:45)
[2022-12-21] MEDS ORDERED: LACTATED RINGERS SOLUTION 1,000 ML IV SCH (13:45)
[2022-12-21] MEDS ORDERED: ACETAMINOPHEN INJECTION 100 ML IVPB ONE (13:45)
[2022-12-21] MEDS ORDERED: DEXAMETHASONE SOD PHOSPHATE 4 MG/1 ML VIAL ONE (13:49)
[2022-12-21 15:18] VITALS: TEMP 97.7
[2022-12-21] MEDS ORDERED: FENTANYL CITRATE/PF 50 MCG/ML VIAL ONE (15:22)
[2022-12-21 17:03] VITALS: BP 124/65; PULSE 70; RESP 20
== END 2022-12-21 16:35 | disposition home or self-care (01) ==
LOC: FASU 09:56
PROVIDERS: ATTEND Plastic Surgery
PROC: 0HRU0JZ Replacement of Left Breast with Synthetic Substitute, Open Approach (ICD-10-PCS; 2022-12-21)
PROC: 0HPU0JZ Removal of Synthetic Substitute from Left Breast, Open Approach (ICD-10-PCS; principal; 2022-12-21 14:28)
DX: Z85.3 Personal history of malignant neoplasm of breast (principal); Z90.12 Acquired absence of left breast and nipple; N65.1 Disproportion of reconstructed breast
CPT/HCPCS: 19342; 19371; L8600; 82962; 88300-TC; 88304-TC; 94760; C1776